=== PATIENT | female | born 1985 | race Caucasian/White ===

== ENCOUNTER 2018-03-30 04:23 | Emergency (ER) | payer MEDICAID ==
[~2018-03-30] VITALS: Ht 172.7 cm; Wt 68.0 kg
[2018-03-30 04:29] VITALS: BP 138/86
[2018-03-30] MEDS ORDERED: ALBUTEROL FS 2.5 MG/0.5 ML VIAL.NEB ONE (04:56)
[2018-03-30] MEDS ORDERED: ALBUTEROL FS 2.5 MG/0.5 ML VIAL.NEB NEB ONE (05:00)
== END 2018-03-30 05:35 | disposition home or self-care (01) ==
LOC: ER 04:26
DX: J06.9 Acute upper respiratory infection, unspecified (principal); Z91.018 Allergy to other foods
CPT/HCPCS: 71045-TC; A4606; Z7610